=== PATIENT | male | born 1975 | race African-American/Black ===

== ENCOUNTER 2024-09-02 00:17 | Emergency (ER) | payer SELFPAY ==
--- NOTE | ~2024-09-02 | XR_ITS ---
EXAMINATION: XR KNEE, LEFT CLINICAL INFORMATION: Stomach pain. Fall. COMPARISON: None available. TECHNIQUE: 2 views of the left knee (AP and lateral). 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 No fracture or dislocation of the left knee. No lytic or sclerotic osseous lesions. No overt cortical erosions. Mild degenerative marginal osteophytosis. Mild loss of medial tibiofemoral joint space. Otherwise, the joint space is relatively preserved. No radiopaque intra-articular bodies. No evidence of significant joint effusion. No focal soft tissue swelling. No radiopaque foreign bodies. XR/XR knee LT 2V IMPRESSION: 1. Prior below-knee amputation. No evidence of acute fracture or dislocation of the left knee. 2. Mild degenerative arthropathy of the knee. Electronically signed by: Conner Narayanan DO 09/02/2024 01:40 AM EDT
[2024-09-02 00:22] VITALS: BP 124/64; BP 220/140; PULSE 106; PULSE 127; RESP 16; TEMP 37; O2SAT 95; O2SAT 98; BMI 23.3
[2024-09-02 00:24] VITALS: BP 124/64; PULSE 111; RESP 16; TEMP 37; O2SAT 96
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
[2024-09-02] MEDS: Gabapentin 300 MG CAPSULE PO (01:02)
--- NOTE | 2024-09-02 01:05 | PC.NURSE ---
pt medicated per mar, tolerated well with water.
--- OUTSIDE RECORDS SUMMARY | 2024-09-02 01:20 | XMS_ITS | Continuity of Care Document ---
Author Organization [facility] Address [address] [place] [address]- Care Team Providers Care House Detective Name Role Phone Vania DOOLEY, Antonio Garcia Primary Care Physician Encounter [facility] Date(s): 03/06/21 - 04/05/21 [facility] [address], [place] [address] Allergies, Adverse Reactions, Alerts Substance Reaction Severity Status Motrin Active Immunizations Given and Recorded Vaccine Date Status Refusal Reason tetanus/diphtheria/pertussis, acel(Tdap) 12/06/19 Given tetanus/diphtheria/pertussis, acel(Tdap) 09/01/16 Given Medications amitriptyline 50 mg oral tablet 3 tablet = 150 mg, By Mouth, Daily at bedtime, # 60 tablet, 0 Refills, Maintenance, 09/01/16 16:50:28, Tablet Start Date: 09/01/16 Status: Ordered amoxicillin-clavulanate 875 mg-125 mg oral tablet 1 tablet, By Mouth, Every 12 hours, Dosage expressed as amoxicillin with food or milk, # 20 tablet,0 Refills, Soft Stop, 02/07/20 23:44:00 EDT, Tablet Start Date: 02/07/20 Stop Date: 02/17/20 Status: Ordered Augmentin 875 mg-125 mg oral tablet 1 tablet, By Mouth, Every 12 hours, # 14 tablet, 0 Refills, Maintenance, 01/23/20 17:43:00 EST, Tablet Start Date: 01/23/20 Stop Date: 01/30/20 Status: Ordered Social History Social History Type Response Smoking Status Current every day paula pepe entered on: 09/01/16 Sex
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
--- OUTSIDE RECORDS SUMMARY | 2024-09-02 01:20 | XMS_ITS | Continuity of Care Document ---
Author Organization [facility] ter Address [address] [place] [id number]- Care Team Providers Care Chief Information Security Officer Name Role Phone Antonio Caro MD Primary Care Physician [place] [facility]07[place] - 05/07/[address] [address]- Encounter Diagnosis Viral URI with cough(Final) - 05/07/22 Discharge Disposition: A-D/C Home Attending Physician: Prosper Morrissey MD Admitting Physician: Prosper Morrissey MD Referring Physician: Not on Staff, Referring [...] Date: 01/23/20 Stop Date: 01/30/20 Status: Ordered Tessalon Perles 100 mg oral capsule 1 capsule = 100 mg, By Mouth, 3 times a day, for 10 days, # 30 capsule, 0 Refills, Acute 05/17/22 20:49:00 EDT, 05/07/22 20:49:00 EDT, Lucía, [id number], Partial fill upon patient request if the prescription is for a schedule II opi... Start Date: 05/07/22 Stop Date: 05/17/22 Status: Ordered Results Radiology Reports * Exam Date Time Procedure Performing Provider Status 05/07/22 7:48 PM Chest 2 Views Frontal and Lat Ghislaine Riojas; Auth (Verified) Notes: (Chest 2 Views Frontal and Lat) Reason For Exam: Shortness of Breath, Fever;Other: RESULT: Chest 2 Views Frontal and Lat Chest 2 Views Frontal and Lat Hx of Present Illness: pt reports sore throat and AC x3 days and coughing up yellow mucus. no sick contacts. pt calling and answering phone calls mid assessment.; Reason: Other:; Shortness of Breath,Fever; Clinical Question(s): Pneumonia COMPARISON: 12/06/2019 FINDINGS: LINES AND TUBES: None. LUNGS AND PLEURA: Clear lungs. Normal pulmonary vascularity. No pleural effusion. No pneumothorax. HEART, MEDIASTINUM AND YASEMIN: Heart is normal in size. Normal upper mediastinal and hilar contour. BONES AND SOFT TISSUES: No acute abnormality. IMPRESSION: No acute abnormality. WSN: [id number] Ordering Physician: Mark Bedolla Dictated By: Connie Guidyr MD Dictated Date/Time: 05/07/22 7:50 pm Reviewed By: Connie Guidry MD Signed By: Connie Guidry MD Signed Date/Time: 05/07/22 7:50 pm Transcribed By: MADELINE Transcribed Date/Time: 05/07/22 7:49 pm Vital Signs Most recent to oldest [Reference Range]: 1 2 Oxygen Saturation [94-100 %] 95 % (05/07/22 4:34 PM) 99 % (05/07/22 4:19 PM) Pulse Rate [55-90 bpm] 95 bpm *H* (05/07/22 4:34 PM) 88 bpm (05/07/22 4:19 PM) Blood Pressure [90-138/55-84 mm Hg] 112/ 60mm Hg (05/07/22 4:34 PM) Respiratory Rate [16-30 br/min] 16 br/mi n (05/07/22 4:34 PM) 18 br/min (05/07/22 4:19 PM) Temperature [96.8-100.4 DegF] 98.5 DegF (05/07/22 4:34 PM) Mode of Delivery (Oxygen) Room air (05/07/22 4:34 PM) Room air (05/07/22 4:19 PM) Blood pressure sites Arm, right (05/07/22 4:34 PM) Temperature Route Oral (05/07/22 4:34 PM) Dry Weight 64 kg (05/07/22 5:23 PM) 64 kg (05/07/22 4:34 PM) Social History Social History Type Response Smoking Status Current every day paula pepe entered on: 09/01/16 Sex
--- OUTSIDE RECORDS SUMMARY | 2024-09-02 01:20 | XMS_ITS | Continuity of Care Document ---
Author Organization [facility] ter Address [address] [place] [address]- Care Team Providers Care Hydrogen Cell Tender Name Role Phone Vania DOOLEY, Antonio Garcia Primary Care Physician Encounter [facility] [place] Date(s): 02/07/20 - 02/08/[address] [address]- [facility] Encounter Diagnosis Contusion(Final) - 02/08/20 Discharge Disposition: A-D/C Home Attending Physician: Mitra Gamez MD Admitting Physician: Mitra Gamez MD Referring Physician: Not on Staff, Referring [...] Exam Date Time Procedure Performing Provider Status 02/07/20 1:45 PM Chest Portable Caryn Mendoza h (Verified) Notes: (Chest Portable) Reason For Exam: trauma;Other: RESULT: Chest Portable AP supine portable view of the chest dated February 07, 2020 at 1337 hours. No prior studies are available. HISTORY: Pain secondary to trauma. FINDINGS: The cardiac silhouette is within normal limits for size. Hilar and mediastinal structuresare unremarkable. No airspace infiltrate or pleural effusion is identified. No displaced rib fracture or pneumothorax is seen. IMPRESSION: No evidence of acute pulmonary disease. Examination [address]. Thank you for allowing me to participate in the care of this patient. WSN: [id number] Ordering Physician: Sabrina Mott Dictated By: Aneudy Rose MD Dictated Date/Time: 02/07/20 1:47 pm Reviewed By: Aneudy Rose MD Signed By: Aneudy Rose MD Signed Date/Time: 02/07/20 1:47 pm Transcribed By: MADELINE Transcribed Date/Time: 02/07/20 1:47 pm Vital Signs Most recent to oldest [Reference Range]: 1 2 3 Oxygen Saturation [94-100 %] 97 % (02/08/20 12:05 AM) 98 % (02/07/20 7:47 PM) 99 % (02/07/20 6:25 PM) Pulse Rate [55-90 bpm] 76 bpm (02/08/20 12:05 AM) 88 bpm (02/07/20 7:47 PM) 94 bpm *H* (02/07/20 6:25 PM) Blood Pressure [90-138/55-84 mm Hg] 125/69mm Hg (02/08/20 12:05 AM) 128/61mm Hg (02/07/20 7:47 PM) 120/93mm Hg (02/07/20 6:25 PM) Respiratory Rate [16-30 br/min] 16 br/min (02/08/20 12:05 AM) 16 br/min (02/07/20 7:47 PM) 19 br/min (02/07/20 6:25 PM) Temperature [96.8-100.4 DegF] 99.6 DegF (02/07/20 7:47 PM) 99.2 DegF (02/07/20 6:25 PM) Mode of Delivery (Oxygen) Room air (02/08/20 12:05 AM) Room air (02/07/20 7:47 PM) Room air (02/07/20 6:25 PM) Blood pressure sites Arm, left (02/08/20 12:05 AM) Arm, right (02/07/20 7:47 PM) Arm, left (02/07/20 6:25 PM) Temperature Route Oral (02/07/20 7:47 PM) Oral (02/07/20 6:25 PM) Social History Social History Type Response Smoking Status Current every day paula pepe entered on: 09/01/16 Sex
--- OUTSIDE RECORDS SUMMARY | 2024-09-02 01:20 | XMS_ITS | Continuity of Care Document ---
Author Organization [facility] ter Address [address] [place] [phone]- Care Team Providers Care Production Helper Name Role Phone Antonio Caro MD Primary Care Physician Encounter [facility] [place] Date(s): 08/30/24 - 08/30/[address] [address]- Discharge Disposition: A-D/C Home Attending Physician: Dom Gupta MD Admitting Physician: Dom Gupta MD Referring Physician: Not on Staff, Referring MD Allergies, Adverse Reactions, Alerts Substance Reaction Severity Status acetaminophen 1 . Active Motrin Active Masha DOOLYE, tylenol makes pt nauseated Immunizations Given and Recorded Vaccine Date Status [...] Date: 01/23/20 Stop Date: 01/30/20 Status: Ordered gabapentin 100 mg oral capsule 100 mg, Capsule, By Mouth, Once, STAT, 08/30/24 6:13:00 EDT, Stop date 08/30/24 6:13:00 EDT Start Date: 08/30/24 Stop Date: 08/30/24 Status: Completed lidocaine 4% topical cream 1 application, Topically, 2 times a day, # 30 Gm, 0 Refills, Maintenance, 08/30/24 11:01:00 EDT, Cream, [id number], Partial fill upon patient request if the prescription is for a schedule II opioid drug., 1 application Topically 2 elana... Start Date: 08/30/24 Stop Date: 09/09/24 Status: Ordered Problem List Condition Confirmation Course Effective Dates Status Health St [facility] Informant COVID-19 1 Confirmed 08/04/22 Active 1Problem added by Discern Expert Results Radiology Reports * Exam Date Time Procedure Performing Provider Status 08/30/24 7:[address] Maxilloface W/O Contrast [place] , Log an; Auth (Verified) Notes: (CT Maxilloface W/O Contrast) Reason For Exam: left inferior orbital/maxillary contusion;Trauma RESULT: CT Maxilloface W/O Contrast CT Maxilloface W/O Contrast INDICATION: fall; Reason: Trauma; left inferior orbital maxillary contusion; Clinical Question(s): Fracture TECHNIQUE: Noncontrast maxillofacial CT was performed. Reformats were performed in 3 planes. Automatic tube modulation and/or iterative dose reconstruction were used optimize scan parameters. COMPARISON: CT head 08/04/2022 FINDINGS: Rfid Systems Engineer View Findings, Lines and Tubes: None. Facial soft tissues: Moderate subcutaneous edema within the left inferior periorbital soft tissue. Orbits: No fracture of the orbital lipscomb. No intraorbital hematoma. Nasal bones: No fracture. Zygomatic arches: No fracture. Pterygoid plates: No fracture. Maxilla and alveolus: Lucency around the left maxillary molar and the right anterior mandibular incisor. Mandible: No fracture or dislocation. Paranasal sinuses: Small amount of fluid in the right mastoid air cells. Other findings: Visualized intracranial structures are unremarkable. IMPRESSION: No maxillofacial fracture. Moderate subcutaneous swelling in the left inferior periorbital soft tissue. Lucency around the left maxillary molar and right anterior mandibular incisor, which may represent periapical abscesses. I have personally reviewed the images and I agree with this report. WSN: [id number] Ordering Physician: Rehana Robert Dictated By: Hua Blevins MD Dictated Date/Time: 08/30/24 8:50 am Reviewed By: Connie Guidry MD Signed By: Connie Guidry MD Signed Date/Time: 08/30/24 8:55 am Transcribed By: MADELINE Transcribed Date/Time: 08/30/24 8:19 am * Exam Date Time Procedure Performing Provider Status 08/30/24 6:33 AM Chest 2 Views Frontal and Lat Geovanni Taniya; Auth (Verified) Notes: (Chest 2 Views Frontal and Lat) Reason For Exam: Traumatic Chest Pain;Other: RESULT: Chest 2 Views Frontal and Lat Chest 2 Views Frontal and Lat Hx of Present Illness: fall; Reason: Other:; Traumatic Chest Pain; Clinical Question(s): Other:; Pneumothorax, Fracture COMPARISON: Multiple prior chest x-rays, the most recent of which is dated 08/04/2022. FINDINGS: LINES AND TUBES: None. LUNGS AND PLEURA: Clear lungs. Normal pulmonary vascularity. No pleural effusion. No pneumothorax. HEART, MEDIASTINUM AND YASEMIN: Heart is normal in size. Normal mediastinal and hilar contour. BONES AND SOFT TISSUES: No acute abnormality. Mild degenerative changes seen in the spine and both acromioclavicular joints. IMPRESSION: No acute abnormality. WSN: [id number] Ordering Physician: Rehana Robert Dictated By: Madalyn Masterson MD Dictated Date/Time: 08/30/24 6:35 am Reviewed By: Madalyn Masterson MD Signed By: Madalyn Masterson MD Signed Date/Time: 08/30/24 6:35 am Transcribed By: MADELINE Transcribed Date/Time: 08/30/24 6:34 am Vital Signs Most recent to oldest [Reference Range]: 1 2 3 Height 165 cm (08/30/24 11:51 AM) 165 cm (08/30/24 5:56 AM) 165 cm (08/30/24 1:11 AM) Weight 64 kg (08/30/24 11:51 AM) 64 kg (08/30/24 5:56 AM) 64 kg (08/30/24 1:11 AM) Oxygen Saturation [94-100 %] 98 % (08/30/24 11:51 AM) 96 % (08/30/24 7:47 AM) 99 % (08/30/24 5:56 AM) Pulse Rate [55-90 bpm] 78 bpm (08/30/24 11:51 AM) 77 bpm (08/30/24 7:47 AM) 83 bpm (08/30/24 5:56 AM) Body Mass Index [18.5-24.99 kg/m2] 23.51 kg/m2 (08/30/24 11:51 AM) 23.51 kg/m2 (08/30/24 5:56 AM) 23.51 kg/m2 (08/30/24 12:20 AM) Blood Pressure [90-138/55-84 mm Hg] 120/70mm Hg (08/30/24 11:51 AM) 118/73mm Hg (08/30/24 7:47 AM) 109/68mm Hg (08/30/24 5:56 AM) Respiratory Rate [16-30 br/min] 16 br/min (08/30/24 11:51 AM) 16 br/min (08/30/24 7:47 AM) 17 br/min (08/30/24 6:16 AM) Temperature [96.8-100.4 DegF] 98.2 DegF (08/30/24 7:47 AM) 98.5 DegF (08/30/24 3:15 AM) 98.3 DegF (08/30/24 12:20 AM) Mode of Delivery (Oxygen) Room air (08/30/24 11:51 AM) Room air (08/30/24 5:56 AM) Room air (08/30/24 3:15 AM) Blood pressure sites Arm, right (08/30/24 11:51 AM) Arm, left (08/30/24 7:47 AM) Arm, left (08/30/24 5:56 AM) Temperature Route Oral (08/30/24 7:47 AM) Oral (08/30/24 3:15 AM) Oral (08/30/24 12:20 AM) Dry Weight 64 kg (08/30/24 11:51 AM) 64 kg (08/30/24 5:56 AM) 64 kg (08/30/24 1:11 AM) Weight Obtained Via Patient/family state d (08/30/24 12:20 AM) Dry Weight Obtained Via Patient/family s tated (08/30/24 12:20 AM) Social History Social History Type Response Smoking Status Current every day paula pepe entered on: 09/01/16 Sex Note * Nette Shore DO: PERFORM Event Display: Patient Education Leaflets Authored Date: [id number] Facial Bruise (Contusion) ?? [id number] Facial Bruise (Contusion) A bruise (contusion) happens when small blood vessels break open and leak blood into the nearby area. This can happen from a bump, hit, or fall. This may happen during sports, an accident, or during a fight. Symptoms often include??changes in skin color (bruising),??swelling, and pain.?? The swelling from the bruise should??decrease??in a few days. Bruising and pain may take several weeks to go away.?? Home care ??? If you have been prescribed medicines for pain, take them as directed. ??? To help reduce swelling and pain, wrap a cold pack or a bag of frozen vegetables in a thin towel. Put it on the injured area for up to 20 minutes. Do this a few times a day until the swelling goes down.? If you have scrapes or cuts on your face??requiring stitches or other closures, care for them as directed. ??? For the next 24 hours (or longer if instructed): o Don???t drink alcohol or use sedatives or medicines that make you sleepy. o Don???t drive or operate machinery. o Don't do anything strenuous. Don???t lift or strain. o Don't return to sports or other activity that could result in another head injury. ?? Note about concussions Because the injury was to your head, it's possible that a mild brain injury (concussion) could result.??Symptoms??of a concussion??can show up later. Be alert for signs and symptoms of a concussion. Seek emergency medical care if any of these develop over the next hours to days: ??? Headache ??? Nausea or vomiting ??? Dizziness ??? Sensitivity to light or noise ??? Unusual sleepiness or grogginess ??? Trouble falling asleep ??? Personality changes ??? Vision changes ??? Memory loss ??? Confusion ??? Trouble walking or clumsiness ??? Loss of consciousness (even for a short time) ??? Inability to be awakened ??? Feeling off or slow as if in a daze ?? Follow-up care Follow up with your healthcare provider as directed. ?? When to seek medical advice Call your healthcare provider right away if any of these occur: ??? Swelling or pain that gets worse, not better ??? New swelling or pain ??? Warmth or drainage from the swollen area??or from cuts orscrapes ??? Fluid drainage or bleeding from the nose or ears ??? Fever of 100.4??F (38??C) or higher, or as directed by your provider ?? Call 911 Call 911??if any of the following occur:? Repeated vomiting ??? Unusual drowsiness or trouble awakening ??? Fainting or loss of consciousness ??? Seizure ??? Worsening confusion, memory loss, dizziness, headache, changes in behavior, speech, or vision ?? Last Reviewed Date: 2022 ?? 2839-4541 [employer]. All rights reserved. This information is not intended as a substitute for professional medical care. Always follow your healthcare professional's instructions. ?? Patient Care team information Care Team Personnel Name: Antonio Caro MD Position: [facility] Physician - Pediatrics Member Role: PCP Address: Address: [address] [place] [address]- Name: Mary Cardozo RN Position: [facility] SN RN Member Role: Primary Care Nurse Care Team Related Persons Name: FAYE NELSON Address: home [address] [place] [address] Name: MERCY DUARTE Address: home [address] [place] [address] Name: ROSY BERRIOS Address: home [address] [place] [address]
--- OUTSIDE RECORDS SUMMARY | 2024-09-02 01:20 | XMS_ITS | Continuity of Care Document ---
Author Organization [facility] ter Address [address] [place] [address]- Care Team Providers Care Appeals Specialist Name Role Phone Antonio Caro MD Primary Care Physician Encounter [facility] [place] Date(s): 04/17/23 - 04/17/[address] [address]- Discharge Disposition: A-D/C Walkout Attending Physician: Not on Staff, Attending MD Admitting Physician: Not on Staff, Admitting MD Referring Physician: Not on Staff, Referring MD Allergies, Adverse Reactions, Alerts Substance Reaction Severity Status acetaminophen Active Motrin Active Immunizations Given and Recorded Vaccine [...] Date: 01/23/20 Stop Date: 01/30/20 Status: Ordered Problem List Condition Confirmation Course Effective Dates Status Health St atus Informant COVID-19 1 Confirmed 08/04/22 Active 1Problem added by Discern Expert Vital Signs Most recent to oldest [Reference Range]: 1 Height 165 cm (04/17/23 3:17 AM) Weight 62 kg (04/17/23 3:17 AM) Oxygen Saturation [94-100 %] 100 % (04/17/23 3:17 AM) Pulse Rate [55-90 bpm] 80 bpm (04/17/23 3:17 AM) Body Mass Index [18.5-24.99 kg/m2] 22.77 kg/m2 (04/17/23 3:17 AM) Blood Pressure [90-138/55-84 mm Hg] 144/ 75mm Hg *H* (04/17/23 3:17 AM) Respiratory Rate [16-30 br/min] 18 br/mi n (04/17/23 3:17 AM) Temperature [96.8-100.4 DegF] 98.8 DegF (04/17/23 3:17 AM) Mode of Delivery (Oxygen) Room air (04/17/23 3:17 AM) Blood pressure sites Arm, left (04/17/23 3:17 AM) Temperature Route Oral (04/17/23 3:17 AM) Dry Weight 62 kg (04/17/23 3:17 AM) Weight Obtained Via Standing scale (04/17/23 3:17 AM) Dry Weight Obtained Via Standing scale (04/17/23 3:17 AM) Social History Social History Type Response Smoking Status Current every day paula pepe entered on: 09/01/16 Sex EKG study * Event Display: ECG 12-Lead Authored Date: Please click on pdf link to open report * Event Display: ECG 12-Lead Authored Date: Ventricular Rate: 66 BPM Atrial Rate: 66 BPM P-R Interval: 146 ms QRS Duration: 84 ms Q-T Interval: 378 ms QTC Calculation(Bazett): 396 ms P [place]: 53 degrees R [place]: 99 degrees T [place]: 66 degrees Normal sinus rhythm with sinus arrhythmia Rightward axis Borderline ECG When compared with ECG of 07-MAY-2022 19:05, Nonspecific T wave abnormality no longer evident in Lateral leads Confirmed by ZAIRA JANSEN ([id number]) on 04/17/2023 5:14:49 PM Watson: ZAIRA JANSEN * Event Display: EKG Authored Date: Patient Care team information Care Team Personnel Name: Antonio Caro MD Position: [facility] General Pediatrics MD Member Role: PCP Address: Address: [address] [place] [phone]- Name: Mary Cardozo RN Position: [facility] SN RN Member Role: Primary Care Nurse Care Team Related Persons Name: FAYE NELSON Address: [address] [place] [address] Name: MERCY DUARTE Address: [address] [place] [address] Name: ROSY BERRIOS Address: home [address] [place] [address]
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
[2024-09-02 02:17] VITALS: BP 120/69; PULSE 95; RESP 14; TEMP 37.3; O2SAT 94
[2024-09-02 02:19] VITALS: BP 120/69; PULSE 95; RESP 14; TEMP 37.3; O2SAT 94
== END 2024-09-02 02:20 | disposition home or self-care (01) ==
PROVIDERS: Emergency Provider Emergency Medicine
DX: M25.562 Pain in left knee (principal); M17.12 Unilateral primary osteoarthritis, left knee; Z89.512 Acquired absence of left leg below knee
CPT/HCPCS: 73560; 99283; 99284